=== PATIENT | female | born 1960 ===

== ENCOUNTER 2020-04-05 16:41 | Emergency (ER) | payer MEDICAID ==
[~2020-04-05] VITALS: Ht 162.6 cm; Wt 102.3 kg
[2020-04-05 16:53] VITALS: BP 136/95
== END 2020-04-05 17:59 | disposition left against medical advice (07) ==
LOC: ER 16:42
DX: M79.606 Pain in leg, unspecified (principal); Z53.21 Procedure and treatment not carried out due to patient leaving prior to being seen by health care provider